=== PATIENT | male | born 1995 | race African-American/Black ===

== ENCOUNTER 2016-08-13 05:15 | Emergency (ER) | payer BC, MEDICAID ==
[~2016-08-13] VITALS: Ht 193 cm; Wt 117.9 kg
[2016-08-13] MEDS ORDERED: ALBUTEROL FS 2.5 MG/3 ML VIAL.NEB ONE (05:40)
[2016-08-13] MEDS ORDERED: ALBUTEROL FS 2.5 MG/3 ML VIAL.NEB CONTNEB ONE (06:00)
[2016-08-13] MEDS ORDERED: DEXAMETHASONE SOD PHOSPHATE 10 MG/ML VIAL IV ONE (06:00)
--- NOTE | 2016-08-13 06:00 | NUR ---
Pt BROUGHT IN BY FAMILY. C/O COUGH WITH CONGESTION. Pt IN ER BED 6. Pt IS A/OX4, AMBULATORY. RR EVEN AND UNLABORED.
[2016-08-13] MEDS ORDERED: DEXAMETHASONE SOD PHOSPHATE 10 MG/ML VIAL ONE (06:09)
--- NOTE | 2016-08-13 06:15 | NUR ---
DECADRON 10MG GIVEN PO. MIXED WITH OJ.
--- NOTE | 2016-08-13 06:30 | NUR ---
Pt D/C BACK HOME. ALL ORDERED MEDS GIVEN. PRESCRIPTION BY MD GIVEN. RR EVEN AND UNLABORED. NO C/O PAIN. Pt IS A/OX4, IS AMBULATORY, WITH STEADY GAIT.
[2016-08-13 06:44] VITALS: BP 147/85
[2016-08-14] MEDS ORDERED: ALBU8.5H2 IH (19:26)
[2016-08-14] MEDS ORDERED: PRED1TAB PO (19:26)
== END 2016-08-13 06:30 | disposition home or self-care (01) ==
LOC: ER 05:16
DX: J45.901 Unspecified asthma with (acute) exacerbation (principal); J06.9 Acute upper respiratory infection, unspecified
CPT/HCPCS: A4606; J1100; Z7610

== ENCOUNTER 2016-08-14 17:37 | Inpatient (IN) | payer MEDICAID, OTHER ==
[~2016-08-14] VITALS: Ht 193 cm; Wt 117.9 kg
[2016-08-14] MEDS ORDERED: Magnesium 1GM/D5W 100ML PREMIX 200 ML IV ONE ×2 (17:58→18:33)
[2016-08-14] MEDS ORDERED: ALBUTEROL FS 2.5 MG/3 ML VIAL.NEB CONTNEB ONE (18:00)
[2016-08-14] MEDS ORDERED: methylPREDNISolone SOD SUCC 125 MG/2ML VIAL IV ONE (18:00)
[2016-08-14] MEDS ORDERED: IPRATROPIUM NEB FS 0.5 MG/2.5 ML AMPUL.NEB NEB ONE (18:00)
[2016-08-14] MEDS ORDERED: IV NS 0.9% 1,000 ML BAG IV ONE ×2 (18:00)
[2016-08-14] MEDS ORDERED: methylPREDNISolone SOD SUCC 125 MG/2ML VIAL ONE (18:04)
[2016-08-14] MEDS ORDERED: IV NS 0.9% 1,000 ML ONE ×2 (18:05→18:33)
[2016-08-14] MEDS ORDERED: IV SET PRIMARY 1 EA INFUS.SET MC ONE ×2 (18:05→18:33)
[2016-08-14] MEDS ORDERED: IPRATROPIUM NEB FS 0.5 MG/2.5 ML AMPUL.NEB ONE ×2 (18:06→21:00)
[2016-08-14] MEDS ORDERED: ALBUTEROL FS 2.5 MG/3 ML VIAL.NEB ONE ×2 (18:06→21:00)
[2016-08-14 18:14] LABS: BASOPHILS # (AUTO) 0.7 /CMM (0.0-0.2); BASOPHILS % (AUTO) 3.4 % (0.0-2.0); EOSINOPHILS # (AUTO) 0.4 /CMM (0.0-0.7); EOSINOPHILS % (AUTO) 1.7 % (0.0-6.0); HEMATOCRIT 44 % (39-51); HEMOGLOBIN 14.7 g/dL (13.5-17.5); LYMPHOCYTES % (AUTO) 4.4 % (20.0-44.0); MEAN CORPUSCULAR HEMOGLOBIN 29 PG (26.0-33.0); MEAN CORPUSCULAR HGB CONC 33 g/dl (31.0-36.0); MEAN CORPUSCULAR VOLUME 87 fL (80-96); MONOCYTES # (AUTO) 0.8 /CMM (0.1-1.30); MONOCYTES % (AUTO) 3.8 % (2.0-12.0); NEUTROPHILS # (AUTO) 18.8 /CMM (1.8-8.9); NEUTROPHILS % (AUTO) 86.7 % (43.0-81.0); PLATELET COUNT (AUTO) 272 /CMM (150-450); RDW COEFFICIENT OF VARIATION 11.6 (11.5-15.0); RED BLOOD CELL COUNT(AUTO) 5.09 MIL/uL (4.5-6.0); WHITE BLOOD COUNT (AUTO) 21.7 K/uL (4.3-11.0)
[2016-08-14 18:21] LABS: CALCIUM, SERUM 9.2 mg/dL (8.5-10.1); CREATININE 1.4 mg/dL (0.6-1.3)
[2016-08-14] MEDS ORDERED: AZITHROMYCIN 250 MG TABLET ONE (19:24)
[2016-08-14] MEDS ORDERED: ALBU8.5H2 IH (19:26)
[2016-08-14] MEDS ORDERED: PRED1TAB PO (19:26)
[2016-08-14] MEDS ORDERED: AZITHROMYCIN 250 MG TABLET PO ONE (19:30)
[2016-08-14] MEDS ORDERED: IV NS 0.9% 1,000 ML IV PRN (20:43)
[2016-08-14 20:44] LABS: ABG BASE EXCESS -2.4 mmol/L; ABG OXYGEN SATURATION 94.1 % (92.0-98.5); ABG PCO2 32.4 mmHg (35.0-45.0); ABG PO2 77.2 mmHg (75.0-100.0); AaDO2 33.7 mmHg; COHb 0.7 % (0.5-1.5); MetHb 0.4 % (0.0-1.5); O2Hb 93.1 % (94.0-97.0); SITE, ABG Right Radial; VENT MODE, BG room air
[2016-08-14] MEDS ORDERED: PENICILLIN G BENZATHINE 2.4 MMU/4 ML ML IM ONE ×2 (20:45→21:00)
[2016-08-14] MEDS ORDERED: ONDANSETRON HCL/PF 4 MG/2 ML VIAL IVP PRN (21:00)
[2016-08-14] MEDS ORDERED: ALPRAZOLAM 0.25 MG TABLET PO PRN (21:00)
[2016-08-14] MEDS ORDERED: ALBUTEROL FS 2.5 MG/3 ML VIAL.NEB NEB ONE (21:00)
[2016-08-14] MEDS ORDERED: ACETAMINOPHEN 325 MG TABLET PO PRN (21:00)
[2016-08-14] MEDS ORDERED: Magnesium 1GM/D5W 100ML PREMIX 100 ML IV SCH (21:00)
[2016-08-14] MEDS ORDERED: AZITHROMYCIN 250 MG TABLET PO SCH (21:00)
[2016-08-14] MEDS ORDERED: ZOLPIDEM TARTRATE 5 MG TABLET PO PRN (21:00)
[2016-08-14] MEDS ORDERED: Z GUARD REMEDY 2 OZ OINT TP PRN (21:00)
[2016-08-14] MEDS ORDERED: HYDROCODONE/APAP 10/325MG 1 EA TABLET PO PRN (21:00)
[2016-08-14] MEDS: ALBUTEROL FS 2.5 MG/3 ML VIAL.NEB NEB SCH ×2 (21:03→23:40)
[2016-08-14] MEDS: IPRATROPIUM NEB FS 0.5 MG/2.5 ML AMPUL.NEB NEB SCH ×2 (21:03→23:40)
[2016-08-14 21:26] VITALS: BP 141/61
[2016-08-14] MEDS: MONTELUKAST SODIUM (10MG) 10 MG TABLET PO SCH (22:03)
[2016-08-15] VITALS: BP 130/58
[2016-08-15] MEDS: IPRATROPIUM NEB FS 0.5 MG/2.5 ML AMPUL.NEB NEB SCH ×6 (03:22→23:27)
[2016-08-15] MEDS: ALBUTEROL FS 2.5 MG/3 ML VIAL.NEB NEB SCH ×6 (03:22→23:27)
[2016-08-15 04:00] VITALS: BP 123/57
[2016-08-15 06:45] LABS: BASOPHILS % (AUTO) 0.1 % (0.0-2.0); HEMATOCRIT 41 % (39-51); HEMOGLOBIN 13.3 g/dL (13.5-17.5); LYMPHOCYTES # (AUTO) 1.2 /CMM (0.8-4.8); LYMPHOCYTES % (AUTO) 5.9 % (20.0-44.0); MEAN CORPUSCULAR HEMOGLOBIN 29 PG (26.0-33.0); MEAN CORPUSCULAR HGB CONC 33 g/dl (31.0-36.0); MEAN CORPUSCULAR VOLUME 89 fL (80-96); MONOCYTES # (AUTO) 1.2 /CMM (0.1-1.30); MONOCYTES % (AUTO) 5.5 % (2.0-12.0); NEUTROPHILS # (AUTO) 18.5 /CMM (1.8-8.9); NEUTROPHILS % (AUTO) 88.5 % (43.0-81.0); PLATELET COUNT (AUTO) 268 /CMM (150-450); RDW COEFFICIENT OF VARIATION 12.4 (11.5-15.0); RED BLOOD CELL COUNT(AUTO) 4.59 MIL/uL (4.5-6.0); WHITE BLOOD COUNT (AUTO) 20.9 K/uL (4.3-11.0)
[2016-08-15 07:00] LABS: ALBUMIN 3.5 g/dL (3.4-5.0); BILIRUBIN,TOTAL 0.5 mg/dL (0.2-1.0); CALCIUM, SERUM 8.9 mg/dL (8.5-10.1); CREATININE 1.2 mg/dL (0.6-1.3); MAGNESIUM 2.5 mg/dL (1.8-2.4); PHOSPHORUS 3.7 mg/dL (2.5-4.9); POTASSIUM 4.3 mmol/L (3.5-5.1); TOTAL PROTEIN, SERUM 8.2 g/dL (6.4-8.2)
[2016-08-15 07:09] LABS: THYROID STIMULATING HORMONE 0.139 uIU/mL (0.358-3.74)
[2016-08-15 08:00] VITALS: BP 137/70
[2016-08-15] MEDS: FLUTICASONE/VILANTEROL 1 EACH BLST.W.DEV IH SCH (08:25)
[2016-08-15] MEDS: PANTOPRAZOLE 40 MG TABLET.DR PO SCH (08:25)
[2016-08-15] MEDS: methylPREDNISolone SOD SUCC 125 MG/2ML VIAL IV SCH ×3 (08:25→17:27)
[2016-08-15] MEDS ORDERED: IV SET PRIMARY PUMP SET 1 EA INFUS.SET MC ONE (09:16)
[2016-08-15 12:00] VITALS: BP 137/63
[2016-08-15 16:00] VITALS: BP 156/73
[2016-08-15 20:19] VITALS: BP 154/72
[2016-08-15] MEDS: MONTELUKAST SODIUM (10MG) 10 MG TABLET PO SCH (22:15)
[2016-08-16 01:06] VITALS: BP 132/65
[2016-08-16] MEDS: ALBUTEROL FS 2.5 MG/3 ML VIAL.NEB NEB SCH ×4 (03:42→16:04)
[2016-08-16] MEDS: IPRATROPIUM NEB FS 0.5 MG/2.5 ML AMPUL.NEB NEB SCH ×4 (03:43→16:04)
[2016-08-16 04:51] VITALS: BP 138/79
[2016-08-16 08:00] VITALS: BP 141/69
[2016-08-16] MEDS: FLUTICASONE/VILANTEROL 1 EACH BLST.W.DEV IH SCH (08:04)
[2016-08-16] MEDS: methylPREDNISolone SOD SUCC 125 MG/2ML VIAL IV SCH ×3 (08:04→17:46)
[2016-08-16] MEDS: PANTOPRAZOLE 40 MG TABLET.DR PO SCH (08:05)
[2016-08-16] MEDS ORDERED: ALBUT2 CONTNEB (09:30)
[2016-08-16 16:00] VITALS: BP 145/84
== END 2016-08-16 17:30 | disposition home or self-care (01) | DRG 141 ==
LOC: ER 17:38 → TELE 20:00 → MED 08-16 10:08
PROVIDERS: ADMIT Internal Medicine; ATTEND Internal Medicine
DX: J45.901 Unspecified asthma with (acute) exacerbation (principal); N17.0 Acute kidney failure with tubular necrosis; D72.829 Elevated white blood cell count, unspecified; F41.9 Anxiety disorder, unspecified; T38.0X5A Adverse effect of glucocorticoids and synthetic analogues, initial encounter; Y92.89 Other specified places as the place of occurrence of the external cause
CPT/HCPCS: 36415; 36600; 71010-TC; 80048-TC; 80053-TC; 80061-TC; 82785; 82803-TC; 83735-TC; 84100-TC; 84443-TC; 85025-TC; 85652-TC; 86308-TC; 86403-TC; 87081-TC; 94799-TC; A4606; J0558; J2930; J3475; J7030; Z7610

== ENCOUNTER 2019-03-05 07:02 | Emergency (ER) | payer MEDICAID ==
[~2019-03-05] VITALS: Ht 193 cm; Wt 124.7 kg
[~2019-03-05 07:02] MED LIST: ALBU8.5H8 IH; ALBUT2 CONTNEB; PRED1TAB PO
[2019-03-05 07:06] VITALS: BP 160/78
[2019-03-05] MEDS ORDERED: ACETAMINOPHEN ES 500 MG TABLET PO ONE (07:30)
[2019-03-05] MEDS ORDERED: KETOROLAC TROMETHAMINE INJ 30 MG/ML VIAL IM ONE (07:30)
[2019-03-05] MEDS ORDERED: KETOROLAC TROMETHAMINE INJ 30 MG/ML VIAL ONE (07:31)
[2019-03-05] MEDS ORDERED: ACETAMINOPHEN ES 500 MG TABLET ONE (07:31)
--- NOTE | 2019-03-05 08:16 | NUR ---
sling applied on right arm.
== END 2019-03-05 08:32 | disposition home or self-care (01) ==
LOC: ER 07:02
DX: M25.511 Pain in right shoulder (principal); R03.0 Elevated blood-pressure reading, without diagnosis of hypertension; J45.909 Unspecified asthma, uncomplicated; Z79.899 Other long term (current) drug therapy; Z91.013 Allergy to seafood
CPT/HCPCS: 73030; 96372; 99283; J1885

== ENCOUNTER 2019-08-02 17:01 | Emergency (ER) | payer MEDICAID ==
[~2019-08-02] VITALS: Ht 193 cm; Wt 127.0 kg
[2019-08-02 17:21] VITALS: BP 176/81
--- NOTE | 2019-08-02 18:46 | NUR ---
Rx for ventolin inhaler.Patient discharged to home in stable condition. Written and verbal after care instructions given. Patient verbalizes understanding of instruction.
== END 2019-08-02 18:48 | disposition home or self-care (01) ==
LOC: ER 17:10
DX: R06.02 Shortness of breath (principal); Z20.828 Contact with and (suspected) exposure to other viral communicable diseases; J45.909 Unspecified asthma, uncomplicated; Z91.013 Allergy to seafood
CPT/HCPCS: 71045; 99284; C9803; U0003

== ENCOUNTER 2019-09-06 19:48 | Emergency (ER) | payer MEDICAID ==
[~2019-09-06] VITALS: Ht 193 cm; Wt 122.5 kg
--- NOTE | 2019-09-06 20:24 | NUR ---
BIBS TO THE ER FOR C.O L SIDED CP 04/19 FOR THE PAST COUPLE WEEK. NON RADIATING, - SOB, - H/A OR DIZZINESS. PT WAS PLACED ON A FULL MONITOR, VSS. WILL CONT TO MONITOR
--- NOTE | 2019-09-06 22:10 | NUR ---
pt is medically stable for d/c. Patient discharged to home in stable condition. Written and verbal after care instructions given. Patient verbalizes understanding of instruction.
[2019-09-06 22:22] VITALS: BP 148/75
== END 2019-09-06 22:22 | disposition home or self-care (01) ==
LOC: ER 19:50
DX: R07.89 Other chest pain (principal); Z20.828 Contact with and (suspected) exposure to other viral communicable diseases; F41.9 Anxiety disorder, unspecified; J45.909 Unspecified asthma, uncomplicated
CPT/HCPCS: 71045; 93005 ×2; 99285; C9803; U0003

== ENCOUNTER 2021-05-22 00:36 | Emergency (ER) | payer MEDICAID ==
[~2021-05-22] VITALS: Ht 193 cm; Wt 122.5 kg
[2021-05-22 00:49] VITALS: BP 135/69
--- NOTE | 2021-05-22 00:51 | NUR ---
BIBS FOR C/O L SIDED CHEST THIGHTNESS X A MONTH. PATIENT ALERT AND ORIENTED X3. PATIENT IN BED 11 ON MONITOR AND POX. SEEN BY MD AT TRIAGE.
--- NOTE | 2021-05-22 01:21 | NUR ---
Patient discharged to home in stable condition. Written and verbal after care instructions given. Patient verbalizes understanding of instruction.
== END 2021-05-22 01:22 | disposition home or self-care (01) ==
LOC: ER 00:39
DX: R07.89 Other chest pain (principal); J45.909 Unspecified asthma, uncomplicated; F41.9 Anxiety disorder, unspecified; F17.200 Nicotine dependence, unspecified, uncomplicated; Z91.013 Allergy to seafood; Z79.51 Long term (current) use of inhaled steroids; Z79.52 Long term (current) use of systemic steroids

== ENCOUNTER 2021-08-27 11:07 | Emergency (ER) | payer MEDICAID ==
[~2021-08-27] VITALS: Ht 193 cm; Wt 99.8 kg
--- NOTE | 2021-08-27 11:14 | NUR ---
CAME IN FOR LOWER BACK PAIN SINCE FRIDAY WHILE WORKING. TO ER BED 12, HOOKED TO MONITOR, CHANGED TO HOSP GOWN, WARM BLANKET PROVIDED. AWAITING MD DAILEY
[2021-08-27] MEDS ORDERED: CYCLOBENZAPRINE 10 MG TABLET ONE (11:58)
[2021-08-27] MEDS ORDERED: DEXAMETHASONE 1 MG TABLET ONE (11:58)
[2021-08-27] MEDS ORDERED: DEXAMETHASONE 4 MG TABLET ONE (11:58)
[2021-08-27] MEDS ORDERED: HYDROCODONE/APAP 5/325MG TABLET ONE (11:58)
[2021-08-27] MEDS ORDERED: DEXAMETHASONE 1 MG TABLET PO ONE (12:00)
[2021-08-27] MEDS ORDERED: HYDROCODONE/APAP 5/325MG TABLET PO ONE (12:00)
[2021-08-27] MEDS ORDERED: NAPROXEN 250 MG TABLET PO ONE (12:00)
[2021-08-27] MEDS ORDERED: CYCLOBENZAPRINE 10 MG TABLET PO ONE (12:00)
--- NOTE | 2021-08-27 12:09 | NUR ---
PT TAKEN TO CT VIA [facility]
[2021-08-27] MEDS ORDERED: METH4TAB3 PO (13:01)
[2021-08-27] MEDS ORDERED: CYCL10TA9 PO (13:01)
[2021-08-27] MEDS ORDERED: OXYC5TAB3 PO (13:01)
[2021-08-27] MEDS ORDERED: NAPR-1192 PO (13:01)
[2021-08-27 13:13] VITALS: BP 120/71
--- NOTE | 2021-08-27 13:13 | NUR ---
Patient discharged to home in stable condition. Written and verbal after care instructions given. Patient verbalizes understanding of instruction.
== END 2021-08-27 13:13 | disposition home or self-care (01) ==
LOC: ER 11:15
DX: M51.26 Other intervertebral disc displacement, lumbar region (principal); J45.909 Unspecified asthma, uncomplicated; F41.9 Anxiety disorder, unspecified; Z91.013 Allergy to seafood; Z79.899 Other long term (current) drug therapy
CPT/HCPCS: 99284; 72131; J8540 ×2